=== PATIENT | male | born 1985 | race Caucasian/White ===

== ENCOUNTER 2016-11-14 04:14 | Emergency (ER) | payer OTHER ==
[2016-11-14 05:46] VITALS: BP 119/78
== END 2016-11-14 05:46 | disposition home or self-care (01) ==
LOC: ED 04:14
DX: L02.31 Cutaneous abscess of buttock (principal); Z88.0 Allergy status to penicillin
CPT/HCPCS: 90715; J3490

== ENCOUNTER 2016-11-20 17:10 | Emergency (ER) | payer OTHER ==
[2016-11-20 17:28] VITALS: BP 124/73
== END 2016-11-20 19:42 | disposition home or self-care (01) ==
LOC: ED 17:10
DX: Z48.01 Encounter for change or removal of surgical wound dressing (principal)

== ENCOUNTER 2020-07-03 18:57 | Emergency (ER) | payer OTHER ==
[~2020-07-03] VITALS: Ht 162.6 cm; Wt 84.8 kg
[2020-07-03 19:11] VITALS: Ht 162.6 cm; Wt 84.8 kg
[2020-07-03 21:03] LABS: BASOPHIL % 0.3 % (0.2-1.5); PLATELET COUNT 229 x10^3mcL (152-348); RED CELL DISTRIBUTION WIDTH 13.1 % (12.1-16.2)
[2020-07-03 21:53] LABS: CALCIUM 8.8 mg/dL (8.5-10.1); CHLORIDE SERUM 102 mmol/L (98-107); CREATININE SERUM 0.7 mg/dL (0.7-1.3); GFR1 > 60 mL/min; GLUCOSE SERUM 99 mg/dL (74-106); SODIUM SERUM 136 mmol/L (136-145)
[2020-07-03 21:58] LABS: ALBUMIN 3.7 g/dL (3.4-5.0); ALKALINE PHOSPHATASE 101 U/L (46-116); ALT/SGPT 44 U/L (16-63); AST/SGOT 39 U/L (15-37); BILIRUBIN TOTAL 0.43 mg/dL (0.20-1.00); LIPASE 641 IU/L (73-393); TOTAL PROTEIN, SERUM 7.3 g/dL (6.4-8.2)
[2020-07-03 22:04] LABS: AMYLASE 152 U/L (25-115)
[2020-07-03 23:28] VITALS: BP 124/701
== END 2020-07-04 01:25 | disposition home or self-care (01) ==
LOC: ED 18:57
PROVIDERS: Emergency Medicine
DX: R10.13 Epigastric pain (principal); Z88.0 Allergy status to penicillin; Z90.49 Acquired absence of other specified parts of digestive tract
CPT/HCPCS: J7030